=== PATIENT | male | born 1995 | race Caucasian/White ===

== ENCOUNTER 2019-09-16 02:51 | Inpatient (IN) | payer MEDICAID, SELFPAY ==
[2019-09-16 02:52] VITALS: BP 143/106; PULSE 100; RESP 16; TEMP 36.9; O2SAT 95; BMI 43.8
--- NOTE | 2019-09-16 03:13 | ED_ITS ---
Entered by Marce Lopes, acting as scribe for Skylar Martins MD HPI - Psych General: Chief Complaint: Psychiatric Symptoms Stated Complaint: SI Time Seen by Provider: 09/16/19 03:09 Source: patient Mode of arrival: EMS Limitations: no limitations History of Present Illness: HPI Narrative: 23 yo m came to the er by ems etoh/si. Onset was tonight. Pt states that his mother called ems because pt has been having alot of si thoughts the last 2 days. Pt states that he has been drinking tonight with his mother. Pt is on medication but has not had them filled. Pt states that he has been off his meds the last 2 years. Pt states that he does not have a plan at this time. Pt states that the last 2 nights he has thought about getting his knife and cutting himself, pt also states that his girlfriend broke up with him. Pt states that he has been diagnosed with bipolar 1, ocd and ptsd. Pt did state that he has tried committed suicide about by hanging himself 4 years ago. He was committed to an [facility] for that incident. complaint: feels depressed and other Onset (ago): day(s) (2 days) Duration: intermittent History of same: Yes Relieving factors: none Exacerbating factors: none Context: recent alcohol abuse and significant life stressor Associated psychiatric symptoms: depression Review of Systems General: Reports: 10 or more systems reviewed and unremarkable except in HPI and below Const: Denies: fever Eyes: Denies: change in vision ENMT: Reports: nasal congestion; Denies: throat pain Card: Denies: chest pain Resp: Denies: shortness of breath GI: Denies: abdominal pain : Denies: flank pain Musc: Denies: neck pain Skin/Breast: Denies: rash Neuro: Denies: headache Psych: Denies: anxiety Endo: Denies: excessive urination Kp/Lymph: Denies: easy bruising All/Imm: Denies: hives PFSH ED PFSH: Statuses (acute, chronic, etc) shown below reflect problem list status as previously entered and may not be historically accurate Social History Smoking and tobacco status: never smoked Physical Exam Const: COMMON NORMALS: no apparent distress and oriented x3 HENMT: HEAD & SCALP: normal to inspection Eye: COMMON NORMALS: PERRL PUPIL: Yes PERRL Neck/C-Spine: COMMON NORMALS: full ROM Lymph: LYMPHATIC: no lymphadenopathy noted Chest: COMMONS NORMALS: inspection of chest normal Resp: COMMON NORMALS: normal respiratory effort Cardio: COMMON NORMALS: regular rate and regular rhythm RATE: regular rate RHYTHM: regular rhythm GI: COMMON NORMALS: normal to inspection, nondistended, normoactive bowel sounds : COMMON NORMALS: Yes no CVA tenderness BLADDER/KIDNEY EXAM: Yes no CVA tenderness Back/Pelvis: COMMON NORMALS: no CVA tenderness Extremity: COMMON NORMALS: normal to inspection Neuro: COMMON NORMALS: oriented x3 Psych: COMMON NORMALS: cooperative, speech normal, denies hallucinations and denies homicidal ideation ATTITUDE: Yes calm ACTIVITY/MOTOR BEHAVIOR: Yes appropriate eye contact SPEECH: Yes normal speech Skin: COMMON NORMALS: no rashes or lesions noted GENERAL SKIN EXAM: no rashes or lesions noted MDM - Psych MDM Narrative: Medical decision making narrative: Discussed with Dr. Mesa the psychiatrist accepts patient for admission. Patient is voluntary his plan was to kill himself with a knife because he is depressed over recent break-up with a girlfriend his last suicide attempt was about 4 years ago when he tried to hang himself he has not been to this facility in the past. He is medically stable for admission to inpatient psychiatric unit. Lab Data: Labs: Lab Results 09/16/19 09/16/19 09/16/19 Range/Units 03:00 03:00 03:22 WBC 11.5 H (4.0-10.0) 10^3/ uL RBC 5.26 (4.1-5.3) 10^6/u L Hgb 15.0 (11.7-16.6) g/dL Hct 46.1 (42.0-52.0) % MCV 87.6 (80-94) fL MCH 28.5 (28.0-34.0) pg MCHC 32.5 (30.0-36.0) g/dL RDW 12.8 (12.1-15.1) % Plt Count 257 (130-400) 10^3/c mm MPV 11.5 H (7.4-10.4) fL Neut % (Auto) 63.8 % Lymph % (Auto) 23.2 % Charles % (Auto) 10.7 % Eos % (Auto) 1.5 % Baso % (Auto) 0.5 % Neut # (Auto) 7.3 (1.8-7.7) 10^3/u L Lymph # (Auto) 2.7 (0.8-4.8) 10^3/u L Charles # (Auto) 1.2 H (0.2-0.9) 10^3/u L Eos # (Auto) 0.2 (0.0-0.8) 10^3/u L Baso # (Auto) 0.1 (0.0-0.1) 10^3/u L Nucleated RBC % (a uto) 0 % Nucleated RBCs # 0.0 /100WBC Sodium 140 (136-145) mmol/L Potassium 3.6 (3.5-5.1) mmol/L Chloride 101 (98-107) mmol/L Carbon Dioxide 28 (22-29) mmol/L Anion Gap 14.6 (5-19) BUN 12 (6-20) mg/dL Creatinine 1.3 H (0.7-1.2) mg/dL GFR Calculation 69.7 L (90-130) mL/min Glucose 95 (74-109) mg/dL Calcium 9.8 (8.6-10.0) mg/Dl Total Bilirubin 0.2 (0.15-1.2) mg/dL AST 18 (0-40) U/L ALT 22 (0-41) U/L Alkaline Phosphata se 84 (40-130) IU/L Total Protein 8.5 (6.6-8.7) g/dL Albumin 4.7 (3.5-5.2) g/dL Globulin 3.8 (1.3-4.6) g/dL Salicylates < 0.3 L (3-10) mg/dL Urine Opiates Scre en Negative (Negative) ng/mL Acetaminophen < 5.0 L (10-30) ug/mL Ur Barbiturates Sc reen Negative (Negative) ng/mL Ur Phencyclidine S crn Negative (Negative) ng/mL Ur Amphetamines Sc reen Negative (Negative) ng/mL U Benzodiazepines Scrn Positive H (Negative) ng/mL Urine Cocaine Scre en Negative (Negative) ng/mL U Marijuana (THC) Screen Negative (Negative) ng/mL Ethyl Alcohol 59 H (0-10) mg/dL Discharge Plan Discharge Patient Disposition: Admitted As Inpatient Clinical Impression: Suicidal ideation Condition: Stable Referrals: Kaleb Diaz MD [Primary Care Provider] - Coding Level of Care Code ED Slot Shift Manager for Chg Fwd Exam Problem Focused The documentation recorded by the Moses armenta Stephanie Lyn, accurately reflects the service I personally performed and the decisions made by me, Skylar Martins MD Sep 16, 2019 02:51
[2019-09-16 03:51] LABS: Basophils # 0.1 10^3/uL (0.0-0.1); Basophils % 0.5 %; Eosinophils # 0.2 10^3/uL (0.0-0.8); Eosinophils % 1.5 %; Hematocrit 46.1 % (42.0-52.0); Lymphocytes # 2.7 10^3/uL (0.8-4.8); Lymphocytes % 23.2 %; Mean Corpuscular HGB Conc 32.5 g/dL (30.0-36.0); Mean Corpuscular Hemoglobin 28.5 pg (28.0-34.0); Mean Corpuscular Volume 87.6 fL (80-94); Mean Platelet Volume 11.5 fL (7.4-10.4); Monocytes # 1.2 10^3/uL (0.2-0.9); Monocytes % 10.7 %; Neutrophils # 7.3 10^3/uL (1.8-7.7); Neutrophils % 63.8 %; Nucleated Red Blood Cells % 0 %; Platelet Count 257 10^3/cmm (130-400); Red Blood Count 5.26 10^6/uL (4.1-5.3); Red Cell Distribution Width 12.8 % (12.1-15.1); White Blood Count 11.5 10^3/uL (4.0-10.0)
[2019-09-16 03:55] LABS: Alanine Aminotransferase 22 U/L (0-41); Albumin Level 4.7 g/dL (3.5-5.2); Alcohol Level 59 mg/dL (0-10); Alkaline Phosphatase 84 IU/L (40-130); Anion Gap 14.6 (5-19); Aspartate Amino Transferase 18 U/L (0-40); Blood Urea Nitrogen 12 mg/dL (6-20); Calcium 9.8 mg/Dl (8.6-10.0); Carbon Dioxide 28 mmol/L (22-29); Chloride 101 mmol/L (98-107); Globulin 3.8 g/dL (1.3-4.6); Glomerular Filtration Rate 69.7 mL/min (90-130); Glucose 95 mg/dL (74-109); Potassium 3.6 mmol/L (3.5-5.1); Sodium 140 mmol/L (136-145); Total Bilirubin 0.2 mg/dL (0.15-1.2); Total Protein 8.5 g/dL (6.6-8.7)
[2019-09-16 03:57] LABS: Acetaminophen < 5.0 ug/mL (10-30); Salicylate < 0.3 mg/dL (3-10)
[2019-09-16 04:05] LABS: Amphetamines Screen Urine Negative (Negative); Barbiturates Screen Urine Negative (Negative); Benzodiazepines Screen Urine Positive (Negative); Cocaine Screen Urine Negative (Negative); Opiate Screen Urine Negative (Negative); PCP Screen Urine Negative (Negative); THC Screen Urine Negative (Negative)
[2019-09-16 05:21] VITALS: BP 116/74; PULSE 102; RESP 18; TEMP 36.8; O2SAT 96
[2019-09-16 05:40] VITALS: BP 131/88; PULSE 88; RESP 18; TEMP 36.7; O2SAT 95
[2019-09-16 06:00] VITALS: BP 131/88; PULSE 88; RESP 18; TEMP 36.7; O2SAT 95
[2019-09-16 13:47] VITALS: BP 131/83; PULSE 80; RESP 16; TEMP 36.9; O2SAT 97
[2019-09-16] MEDS: nicotine 2 mg Gum BUCCAL (14:35)
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
[2019-09-16 19:43] VITALS: BP 129/82; PULSE 65; RESP 20; TEMP 36.9; O2SAT 99
[2019-09-17 06:00] VITALS: BP 124/78; PULSE 60; RESP 19; TEMP 36.7; O2SAT 99
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
[2019-09-17 12:13] VITALS: BP 124/78; PULSE 60; RESP 19; TEMP 36.6; O2SAT 99
[2019-09-17 12:20] VITALS: BP 124/78; PULSE 60; RESP 19; TEMP 36.6; O2SAT 99
[2019-09-17] MEDS: nicotine 2 mg Gum BUCCAL (13:36)
[2019-09-17 14:00] VITALS: BP 124/78; RESP 19; TEMP 36.6; O2SAT 99
[2019-09-17 14:55] VITALS: BP 123/83; PULSE 66; RESP 20; TEMP 36.8; O2SAT 96
[2019-09-17 15:48] VITALS: RESP 20; TEMP 36.8; O2SAT 96
== END 2019-09-17 15:30 | disposition home or self-care (01) | DRG 881 ==
LOC: ER 04:55 → NP 05:16
PROVIDERS: Admitting Provider Psychiatry & Neurology Psychiatry; Emergency Provider Emergency Medicine; Family Provider Family Medicine; PCP Family Medicine; Visit Provider Psychiatry & Neurology Psychiatry
DX: F43.21 Adjustment disorder with depressed mood (principal)
CPT/HCPCS: 80053; 80307; 85025; 99284